=== PATIENT | female | born 1950 | race Caucasian/White ===

== ENCOUNTER 2017-11-27 07:20 | Day surgery (SDC) | payer BC ==
[~2017-11-27 07:20] MED LIST: SOD CHLORIDE 0.9% 1,000 ML IV
[2017-11-27] MEDS ORDERED: CEFAZOLIN 2 GM/50 ML (PMX) 50 ML IVPB (08:30)
[2017-11-27] MEDS ORDERED: GLYCOPYRROLATE 0.4 MG INJ (09:32)
[2017-11-27] MEDS ORDERED: FENTAnyl 50 MCG/ML VIAL (09:32)
[2017-11-27] MEDS ORDERED: ROCURONIUM 50 MG INJ (09:32)
[2017-11-27] MEDS ORDERED: CEFAZOLIN 1 GM INJ (09:32)
[2017-11-27] MEDS ORDERED: PROPOFOL 20 ML (09:32)
[2017-11-27] MEDS ORDERED: NEOSTIGMINE 3 MG/3 ML SYRINGE (09:32)
[2017-11-27] MEDS ORDERED: MIDAZOLAM 1 MG/ML 2 ML INJ (09:32)
[2017-11-27] MEDS ORDERED: ONDANSETRON 4 MG INJ (09:32)
[2017-11-27] MEDS ORDERED: DEXAMETHASONE 4 MG/ML 1 ML INJ (09:32)
[2017-11-27] MEDS ORDERED: MIDAZOLAM 1 MG/ML 2 ML INJ IV (10:30)
[2017-11-27] MEDS ORDERED: OXYCODONE/ACETAMINOPHEN (5/325) TAB PO ×2 (10:30)
[2017-11-27] MEDS ORDERED: ALBUTEROL 0.083% (NEB) 2.5 MG/3 ML AMP HHN (10:30)
[2017-11-27] MEDS ORDERED: MEPERIDINE 25 MG INJ IV (10:30)
[2017-11-27] MEDS ORDERED: hydrALAzine 20 MG INJ IV (10:30)
[2017-11-27] MEDS ORDERED: LABETALOL HCL 20MG INJ IV (10:30)
[2017-11-27] MEDS ORDERED: TRIMETHOBENZAMIDE 100 MG/ML VIAL IM (10:30)
[2017-11-27] MEDS ORDERED: EPHEDrine SULFATE 50 MG/5 ML SYG IV (10:30)
[2017-11-27] MEDS ORDERED: DIPHENHYDRAMINE 50 MG INJ IV (10:30)
[2017-11-27] MEDS ORDERED: FENTAnyl 50 MCG/ML VIAL IV ×2 (10:30)
[2017-11-27] MEDS ORDERED: ONDANSETRON 4 MG INJ IV (10:30)
[2017-11-27] MEDS ORDERED: HYDROmorphONE 1 MG/5 ML IV SYRINGE IV ×3 (10:30)
[2017-11-27] MEDS ORDERED: IPRATROPIUM (NEB) 0.5 MG/2.5 ML AMP HHN (10:30)
[2017-11-27] MEDS: BUPIVACAINE 0.25% (MPF) 30 ML INJ (10:34)
[2017-11-27] MEDS ORDERED: HYDROCODONE/APAP (5/325) TAB PO (11:00)
[2017-11-27] MEDS: FENTAnyl 50 MCG/ML VIAL IV ×2 (11:09→11:24)
== END 2017-11-27 13:00 | disposition home or self-care (01) ==
LOC: SDS 07:20
DX: K80.10 Calculus of gallbladder with chronic cholecystitis without obstruction (principal); I10 Essential (primary) hypertension; E03.9 Hypothyroidism, unspecified; E78.5 Hyperlipidemia, unspecified
CPT/HCPCS: 47562; 88304